=== PATIENT | male | born 1940 | race Hispanic/Latino ===

== ENCOUNTER 2017-03-29 17:52 | Emergency (ER) | payer OTHER, MEDICARE ==
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
[2017-03-29 19:11] LABS: Basophils # (Auto) 0.1 K/mm3 (0.0-0.1); Basophils % (Auto) 0.6 % (0.0-1.8); Eosinophils # (Auto) 0.1 K/mm3 (0.0-0.4); Eosinophils % (Auto) 0.6 % (0.0-4.3); Hematocrit 38.1 % (35.5-45.6); Hemoglobin 12.7 gm/dl (11.8-15.2); Lymphocytes # (Auto) 0.9 K/mm3 (1.2-5.4); Lymphocytes % (Auto) 6.4 % (13.4-35.0); Mean Corpuscular HGB Conc 33 % (32-34); Mean Corpuscular Hemoglobin 30 pg (28-32); Mean Corpuscular Volume 88 fl (84-94); Monocytes # (Auto) 0.5 K/mm3 (0.0-0.8); Monocytes % (Auto) 3.5 % (0.0-7.3); Platelet Count 245 K/mm3 (140-440); Red Blood Count 4.32 M/mm3 (3.65-5.03)
[2017-03-29 19:31] LABS: INR 0.95 (0.87-1.13); Partial Thromboplastin Time 29.2 Sec. (24.2-36.6)
[2017-03-29 19:46] LABS: Albumin 4.8 g/dL (3.9-5); Calcium 9.8 mg/dL (8.4-10.2)
[2017-03-29 19:53] LABS: Bilirubin,Direct 0.2 mg/dL (0-0.2)
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
[2017-03-29] MEDS ORDERED: MORPHINE IV ONE (21:08)
[2017-03-29] MEDS ORDERED: ZOFRAN IV ONE (21:08)
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
[2017-03-30 00:07] VITALS: BP 144/57
== END 2017-03-30 00:32 | disposition home or self-care (01) ==
LOC: ED 17:52
DX: S16.1XXA Strain of muscle, fascia and tendon at neck level, initial encounter (principal); S29.8XXA Other specified injuries of thorax, initial encounter; R10.817 Generalized abdominal tenderness; I10 Essential (primary) hypertension; E11.9 Type 2 diabetes mellitus without complications; V89.2XXA Person injured in unspecified motor-vehicle accident, traffic, initial encounter; Y93.89 Activity, other specified; Y92.89 Other specified places as the place of occurrence of the external cause; Y99.8 Other external cause status
CPT/HCPCS: 36415; 71260; 72040; 73590; 74177; 80048; 80074; 85025; 85610; 85730; 93005; 93010; 96374; 96375; 99285; J2270; J2405; Q9967

== ENCOUNTER 2017-06-10 16:35 | Emergency (ER) | payer MEDICARE, OTHER ==
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
[2017-06-10] MEDS ORDERED: MORPHINE ONE (16:57)
[2017-06-10] MEDS ORDERED: MORPHINE IV ONE (17:00)
[2017-06-10 17:27] LABS: Hemoglobin 12.5 gm/dl (11.8-15.2); Mean Corpuscular HGB Conc 34 % (32-34); Mean Corpuscular Hemoglobin 29 pg (28-32); Mean Corpuscular Volume 85 fl (84-94); Platelet Count 299 K/mm3 (140-440); Red Blood Count 4.36 M/mm3 (3.65-5.03); Red Cell Distribution Width 14.6 % (13.2-15.2)
[2017-06-10 17:30] LABS: INR 0.99 (0.87-1.13)
[2017-06-10 17:33] LABS: Alanine Aminotransferase 16 units/L (7-56); Albumin 4.1 g/dL (3.9-5); BUN/Creatinine Ratio 13; Blood Urea Nitrogen 17 mg/dL (9-20); Calcium 9.8 mg/dL (8.4-10.2); Hemolysis Index 5
[2017-06-10] MEDS ORDERED: DILAUDID IV ONE ×2 (17:40→20:59)
[2017-06-10 17:58] LABS: Basophils # (Auto) 0.1 K/mm3 (0.0-0.1); Basophils % (Auto) 0.9 % (0.0-1.8); Eosinophils # (Auto) 0.2 K/mm3 (0.0-0.4); Eosinophils % (Auto) 1.3 % (0.0-4.3); Lymphocytes % (Auto) 15.5 % (13.4-35.0); Monocytes # (Auto) 0.5 K/mm3 (0.0-0.8); Monocytes % (Auto) 3.7 % (0.0-7.3)
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
--- NOTE | 2017-06-10 20:30 | XRay Report ---
FINAL REPORT EXAM: XR PELVIS 1-2V HISTORY: Trauma; hip pain TECHNIQUE: Pelvis two views and left hip PRIORS: None. FINDINGS: There is acute traumatic comminuted intertrochanteric left femoral fracture. There is mild angulation present in superior migration the femoral shaft. Adjacent bony pelvis appears within normal limits IMPRESSION: . Acute intertrochanteric left hip fracture
--- NOTE | 2017-06-10 20:31 | XRay Report ---
FINAL REPORT EXAM: XR CHEST 1V AP HISTORY: Trauma; chest pain TECHNIQUE: Single AP view of the chest PRIORS: None. FINDINGS: There elevation of the right hemidiaphragm. Cardiac and mediastinal contours are unremarkable. No focal pulmonary infiltrate identified. Multiple healed left rib fractures are noted. IMPRESSION: Elevation the left hemidiaphragm No acute findings in the chest
[2017-06-10] MEDS ORDERED: NACL 0.9% 500 ML 500 ML IV ONE (21:23)
[2017-06-10 22:49] VITALS: BP 107/65
== END 2017-06-10 23:15 | disposition other institution (70) ==
LOC: ED 16:35
DX: S22.089A Unspecified fracture of T11-T12 vertebra, initial encounter for closed fracture (principal); S72.142A Displaced intertrochanteric fracture of left femur, initial encounter for closed fracture; I10 Essential (primary) hypertension; E11.9 Type 2 diabetes mellitus without complications; W17.89XA Other fall from one level to another, initial encounter; Y93.89 Activity, other specified; Y92.89 Other specified places as the place of occurrence of the external cause; Y99.8 Other external cause status
CPT/HCPCS: 36415; 70450; 71045; 72125; 72128; 72131; 72170; 80053; 82550; 84484; 85025; 85610; 85730; 96374; 96375; 96376; 99284; J1170; J2270; J7040